=== PATIENT | female | born 1955 | race African-American/Black ===

== ENCOUNTER → 2016-09-05 | Day surgery (SDC) | payer OTHER ==
[2016-09-05 08:39] LABS: CREATININE 0.9 mg/dL (0.5-1.0); POTASSIUM 4.1 mmol/L (3.5-5.1)
== END | disposition home or self-care (01) ==
LOC: FAS 07:50
PROVIDERS: Anesthesiology
DX: Z12.11 Encounter for screening for malignant neoplasm of colon (principal); I10 Essential (primary) hypertension; M19.90 Unspecified osteoarthritis, unspecified site; E78.00 Pure hypercholesterolemia, unspecified; Z79.899 Other long term (current) drug therapy; Z98.890 Other specified postprocedural states; Z90.89 Acquired absence of other organs; Z90.49 Acquired absence of other specified parts of digestive tract; Z98.61 Coronary angioplasty status
CPT/HCPCS: 36415; 80048; J2704

== ENCOUNTER 2020-07-13 08:00 | Emergency (ER) | payer OTHER ==
[2020-07-13] MEDS ORDERED: NAPROXEN500 MG PO (10:13)
[2020-07-13] MEDS ORDERED: CYCLOBENZAPRINE10 MG PO (10:13)
== END 2020-07-13 10:37 | disposition home or self-care (01) ==
LOC: FER 08:00
DX: M75.102 Unspecified rotator cuff tear or rupture of left shoulder, not specified as traumatic (principal); R00.1 Bradycardia, unspecified; I10 Essential (primary) hypertension
CPT/HCPCS: 73030; 93005; J1885